=== PATIENT | male | born 1990 | race Caucasian/White ===

== ENCOUNTER 2016-08-17 23:01 | Day surgery (SDC) | payer OTHER ==
[~2016-08-17] VITALS: Ht 188 cm; Wt 113.4 kg
[2016-08-17 23:39] LABS: BASO # 0.1 (0.0-0.2); BASO % 0.6 % (0.0-2.0); EOS # 2.3 (0.0-0.7); EOS % 19.7 % (0-4.0); GRAN # 4.3 (1.4-6.5); HEMATOCRIT 49.5 % (42.0-52.0); HEMOGLOBIN 16.7 g/dl (13.5-18.0); LYMPH # 3.9 (1.2-3.4); LYMPH % 34.3 % (20.0-51.0); MEAN CELL VOLUME 77 fl (80.0-100.0); MEAN CORPUSCULAR HEMOGLOBIN 26 pg (27.0-31.0); MEAN CORPUSCULAR HGB CONC 34 g/dl (33.0-37.0); MONO # 0.8 (0.1-0.6); MONO % 6.9 % (1.7-9.3); PLATELET COUNT 259 K/mm3 (130-400); RED BLOOD COUNT 6.44 M/mm3 (4.20-5.60); WHITE BLOOD COUNT 11.4 K/mm3 (4.8-10.8)
[2016-08-18] VITALS (9 sets, daily range): BP systolic 106–138; BP diastolic 56–73; PULSE 54–88; TEMP 97.4–98
[2016-08-18 00:05] LABS: PH 5 (5-8); SQUAMOUS EPITHELIAL None Seen /hpf; URINE APPEARANCE Clear; URINE BACTERIA None Seen /hpf; URINE BILIRUBIN Negative (NEGATIVE); URINE BLOOD Negative (NEGATIVE); URINE COLOR Yellow; URINE GLUCOSE Negative (NEGATIVE); URINE KETONE Negative (NEGATIVE); URINE RBC 0-2 /hpf; URINE UROBILINOGEN Negative (NEGATIVE); URINE WBC 0-2 /hpf
[2016-08-18 00:36] LABS: ADJUSTED CALCIUM 9.3 mg/dL (8.4-10.2); ALBUMIN 4.1 gm/dL (3.5-5.0); BILIRUBIN,TOTAL 0.8 mg/dL (0.0-1.0); C-REACTIVE PROTEIN 0.6 mg/dL (0.0-0.9); CALCIUM 9.4 mg/dL (8.4-10.2); CREATININE, serum 1.13 mg/dL (0.66-1.25); POTASSIUM 4.4 mmol/L (3.4-5.0); TOTAL PROTEIN 7.1 gm/dL (6.4-8.2)
[2016-08-18] MEDS ORDERED: NORCO 325 MG-7.1 TAB PO (15:33)
== END 2016-08-18 19:53 | disposition home or self-care (01) ==
LOC: COL.ER 23:01 → SDCO 08-18 01:51 → SURG 08-18 02:30 → SDCO 08-18 19:53 → SURG 08-18 19:53
PROVIDERS: Emergency Medicine
DX: K80.00 Calculus of gallbladder with acute cholecystitis without obstruction (principal)
CPT/HCPCS: OP; J0690; J1100; J1170; J1885; J2405; J2543; J2704; J2765; J3010; J7030; J7050; J7120; Q9967